=== PATIENT | male | born 1975 | race African-American/Black ===

== ENCOUNTER 2017-02-09 23:36 | Emergency (ER) | payer SELFPAY ==
[2017-02-09] MEDS ORDERED: Acetaminophen 500 MG Tab PO ONE (23:54)
[2017-02-09] MEDS ORDERED: Bacitracin Oint 1 GM U/D Packet TOP ONE (23:54)
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
[2017-02-10 01:14] VITALS: BP 112/66
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
== END 2017-02-10 01:26 | disposition home or self-care (01) ==
LOC: MERGE 23:36 → EDSEX 23:36 → MW.ED 23:36
DX: S16.1XXA Strain of muscle, fascia and tendon at neck level, initial encounter (principal); S00.33XA Contusion of nose, initial encounter; S60.221A Contusion of right hand, initial encounter; Y04.0XXA Assault by unarmed brawl or fight, initial encounter; Y92.009 Unspecified place in unspecified non-institutional (private) residence as the place of occurrence of the external cause
CPT/HCPCS: 70160; 72040; 73130; 99284; A9270; 99282